=== PATIENT | female | born 2000 | race Caucasian/White ===

== ENCOUNTER 2021-02-09 10:00 | Inpatient (IN) ==
[2021-02-09] MEDS ORDERED: Metoclopramide 10 MG/2 ML VIAL IVP PRN (10:16)
[2021-02-09] MEDS ORDERED: Famotidine 20 MG/2 ML VIAL IVP PRN (10:16)
[2021-02-09] MEDS ORDERED: Naloxone 0.4 MG/ML INJ IVP PRN (10:16)
[2021-02-09] MEDS ORDERED: Oxytocin 20 units/ LR 1000 mL 20 UNIT/1,000 ML BAG IVC SCH (10:30)
[2021-02-09 11:18] LABS: Basophils # 0.1 K/mcL (0.0-0.2); Basophils % 0.5 %; Eosinophils # 0.1 K/mcL (0.0-0.6); Eosinophils % 0.5 %; Hematocrit 37.4 % (35.3-44.9); Hemoglobin 11.9 g/dL (11.5-15.4); Immature Granulocytes % 0.4 % (0-4); Lymphocytes % 21.3 %; Mean Corpuscular HGB Conc 31.8 g/dL (31.6-35.5); Mean Corpuscular Hemoglobin 26.9 pg (28.0-33.3); Mean Corpuscular Volume 84.4 fL (83.0-100.0); Mean Platelet Volume 11.8 fL (9.4-12.4); Monocytes # 0.8 K/mcL (0.0-1.3); Monocytes % 8.8 %; Neutrophils # 6.5 K/mcL (1.6-8.9); Platelet Count 245 K/mcL (140-400); Red Blood Count 4.43 M/mcL (3.82-4.97); Red Cell Distribution Width 12.8 % (11.5-14.5); Segmented Neutrophils % 68.5 %; White Blood Count 9.5 K/mcL (4.3-11.1)
[2021-02-09 11:26] LABS: Amphetamine Screen,Urine Negative ng/mL (Cutoff=1000); Barbiturate Screen,Urine Negative ng/mL (Cutoff=200); Benzodiazepines Screen,Urine Negative ng/mL (Cutoff=200); Cannabinoid Screen,Urine Negative ng/mL (Cutoff = 50); Cocaine Screen,Urine Negative ng/mL (Cutoff= 300); Opiate Screen,Urine Negative ng/mL (Cutoff=300); Phencyclidine Screen,Urine Negative ng/mL (Cutoff=25)
[2021-02-09 11:52] LABS: Influenza A PCR Negative (Negative); Influenza B PCR Negative (Negative); Resp. Syncytial Virus PCR Negative (Negative); SARS-CoV-2 by PCR (In House) Negative (Negative)
[2021-02-09] MEDS ORDERED: EPHEDrine 50 MG/ML VIAL IVP PRN (12:24)
[2021-02-09] MEDS ORDERED: Epidural Premix (fent/bupiv) 110 ML EP SCH (12:30)
[2021-02-09] MEDS ORDERED: miSOPROStoL 25 MCG TABLET PO PRN (12:39)
[2021-02-09] MEDS: Ringers Solution, Lactated 1,000 ML IVC SCH ×2 (12:48→17:23)
[2021-02-09] MEDS: *HR* Nalbuphine 10 MG/ML AMPUL IV PRN ×2 (12:48→17:22)
[2021-02-10] MEDS ORDERED: *HR* FentaNYL (PF) 100 MCG/2 ML VIAL ONE (02:09)
[2021-02-10] MEDS ORDERED: Ropivacaine/PF 0.2% 20 ML VIAL ONE (02:09)
[2021-02-10] MEDS ORDERED: Benzocaine/Menthol 56 GM AEROSOL SPRAY TP PRN (05:05)
[2021-02-10] MEDS ORDERED: Acetaminophen 325 MG TABLET PO PRN (05:05)
[2021-02-10] MEDS ORDERED: Lanolin 7 G OINT...G. TP PRN (05:05)
[2021-02-10] MEDS ORDERED: Oxytocin 20 units/ LR 1000 mL 20 UNIT/1,000 ML BAG IVC SCH (05:05)
[2021-02-10] MEDS: Prenatal Vit/FA 1 EACH TABLET PO SCH (08:25)
[2021-02-10] MEDS: Ibuprofen 600 MG TABLET PO PRN ×2 (08:25→21:19)
[2021-02-11] MEDS: Ibuprofen 600 MG TABLET PO PRN (08:01)
[2021-02-11] MEDS: Prenatal Vit/FA 1 EACH TABLET PO SCH (08:01)
[2021-02-11 08:34] VITALS: BP 121/70
== END 2021-02-11 12:07 | disposition home or self-care (01) | DRG 560 ==
LOC: 1NENULAB 10:07 → 1NENUOBS 02-10 05:49
PROVIDERS: ADMIT Registered Nurse; ATTEND Registered Nurse